=== PATIENT | female | born 1985 | race African-American/Black ===

== ENCOUNTER 2017-06-24 00:20 | Emergency (ER) | payer MEDICAID ==
[~2017-06-24] VITALS: Ht 154.9 cm; Wt 76.0 kg
[2017-06-24 00:56] LABS: CLARITY URINE CLEAR (CLEAR); COLOR URINE YELLOW (YELLOW); KETONES URINE 3+ (NEGATIVE); LEUKOCYTE ESTERASE URINE NEGATIVE (NEGATIVE); NITRITE URINE NEGATIVE (NEGATIVE); OCCULT BLOOD URINE NEGATIVE (NEGATIVE); PROTEIN URINE NEGATIVE (NEGATIVE); SPECIFIC GRAVITY URINE 1.009 (1.005-1.030); UROBILINOGEN URINE 0.2 E.U./dL (0.2-1.0)
[2017-06-24] MEDS ORDERED: SODIUM CHLORIDE 0.9% 1,000 ML IV ONE (06:50)
[2017-06-24] MEDS ORDERED: ONDANSETRON HCL 4MG/2ML VIAL IV ONE (07:00)
[2017-06-24 07:35] LABS: BASOPHILS % 0.4 % (0.0-2.0); CHLORIDE 105 mEq/L (98-107); EOSINOPHILS % 0.6 % (0.0-5.0); HEMATOCRIT. 36.2 % (36.0-48.0); LYMPHOCYTES % 15.5 % (20.0-50.0); MEAN CORPUSCULAR HEMOGLOBIN 28.4 pg (28.0-32.0); MEAN CORPUSCULAR VOLUME 85.9 fL (81.0-99.0); MEAN PLATELET VOLUME 7.8 fl (7.4-10.4); MONOCYTES % 6.3 % (2.0-8.0); NEUTROPHILS % 77.2 % (40.0-76.0); PLATELET 232 x1000/uL (130-400); RED BLOOD CELL COUNT 4.22 mill/uL (4.2-5.4); RED CELL DISTRIBUTION WIDTH 13.4 % (11.6-14.6)
[2017-06-24 07:58] LABS: B-HCG QUANTITATIVE 46693 mIU/mL (<3)
[2017-06-24 10:13] VITALS: BP 104/63
== END 2017-06-24 11:24 | disposition home or self-care (01) ==
LOC: ER 02:43
DX: R10.2 Pelvic and perineal pain (principal); Z32.01 Encounter for pregnancy test, result positive; F12.10 Cannabis abuse, uncomplicated
CPT/HCPCS: 36415; 76705; 76801; 76817; 80053; 81003; 83690; 84702; 85025; 86850; 86900; 86901; 96361; 96374; 99285; J2405; J7030; Z7610

== ENCOUNTER 2017-08-06 14:16 | Emergency (ER) | payer MEDICAID ==
[~2017-08-06] VITALS: Ht 154.9 cm; Wt 73.0 kg
[2017-08-06] MEDS ORDERED: PYRIDOXINE HCL 50MG TABLET PO ONE (16:45)
[2017-08-06 16:48] LABS: BASOPHILS % 0.4 % (0.0-2.0); EOSINOPHILS % 0.9 % (0.0-5.0); HEMATOCRIT. 34.7 % (36.0-48.0); HEMOGLOBIN. 11.5 g/dL (12.0-16.0); LYMPHOCYTES % 15.4 % (20.0-50.0); MEAN CORPUSCULAR HEMOGLOBIN 28.6 pg (28.0-32.0); MEAN CORPUSCULAR VOLUME 86.4 fL (81.0-99.0); MEAN PLATELET VOLUME 7.7 fl (7.4-10.4); MONOCYTES % 4.9 % (2.0-8.0); NEUTROPHILS % 78.4 % (40.0-76.0); PLATELET 212 x1000/uL (130-400); RED BLOOD CELL COUNT 4.02 mill/uL (4.2-5.4); RED CELL DISTRIBUTION WIDTH 13.1 % (11.6-14.6)
[2017-08-06 16:56] LABS: CHLORIDE 106 mEq/L (98-107)
[2017-08-06 17:21] LABS: B-HCG QUANTITATIVE 45522 mIU/mL (<3)
[2017-08-06 19:02] LABS: CLARITY URINE CLEAR (CLEAR); COLOR URINE YELLOW (YELLOW); KETONES URINE 2+ (NEGATIVE); LEUKOCYTE ESTERASE URINE NEGATIVE (NEGATIVE); NITRITE URINE NEGATIVE (NEGATIVE); OCCULT BLOOD URINE NEGATIVE (NEGATIVE); PH URINE 6.5 (4.5-8.0); PROTEIN URINE NEGATIVE (NEGATIVE); SPECIFIC GRAVITY URINE 1.024 (1.005-1.030)
[2017-08-06 20:40] VITALS: BP 109/77
== END 2017-08-06 21:01 | disposition home or self-care (01) ==
LOC: ER 14:16
DX: O26.891 Other specified pregnancy related conditions, first trimester (principal); R10.2 Pelvic and perineal pain; F12.10 Cannabis abuse, uncomplicated; Z3A.12 12 weeks gestation of pregnancy
CPT/HCPCS: 36415; 76801; 80053; 81003; 81025; 84702; 85025; 86850; 86900; 86901; 99285; Z7610

== ENCOUNTER 2021-08-04 00:27 | Emergency (ER) | payer MEDICAID, MEDICARE ==
[~2021-08-04] VITALS: Ht 157.5 cm; Wt 82.3 kg
[~2021-08-04 00:27] MED LIST: FERR236T3 MT; PREN1TAB78 MT
[2021-08-04] MEDS ORDERED: HYDROCODONE/ACETAMINOPHEN 5/325MG TABLET PO STA (03:52)
[2021-08-04 05:18] LABS: HEMATOCRIT 35.4 % (36.0-48.0); HEMOGLOBIN 11.5 g/dL (12.0-16.0); MEAN CORPUSCULAR HEMOGLOBIN 28.3 pg (28.0-32.0); MEAN CORPUSCULAR VOLUME 86.9 fL (81.0-99.0); PLATELET 197 x1000/uL (130-400); RED BLOOD CELL COUNT 4.07 mill/uL (4.2-5.4); RED CELL DISTRIBUTION WIDTH 13.3 % (11.6-14.6)
[2021-08-04 05:40] LABS: CHLORIDE 110 mEq/L (98-107)
[2021-08-04] MEDS ORDERED: TOPUD PO (07:07)
[2021-08-04 07:48] VITALS: BP 122/74
== END 2021-08-04 07:48 | disposition home or self-care (01) ==
LOC: ER 00:27
DX: S20.112A Abrasion of breast, left breast, initial encounter (principal); S30.1XXA Contusion of abdominal wall, initial encounter; F12.10 Cannabis abuse, uncomplicated; Z98.890 Other specified postprocedural states; V43.62XA Car passenger injured in collision with other type car in traffic accident, initial encounter; Y93.89 Activity, other specified; Y92.488 Other paved roadways as the place of occurrence of the external cause
CPT/HCPCS: 36415; 71045; 71260; 73110; 74177; 80053; 81025; 85027; 99285

== ENCOUNTER 2022-01-18 18:37 | Emergency (ER) | payer MEDICAID, MEDICARE ==
[~2022-01-18] VITALS: Ht 157.5 cm; Wt 88.0 kg
[~2022-01-18 18:37] MED LIST changes: +TOPUD PO
[2022-01-19 00:25] LABS: BASOPHILS % 0.3 % (0.0-2.0); EOSINOPHILS % 1.6 % (0.0-5.0); HEMATOCRIT. 37.7 % (36.0-48.0); HEMOGLOBIN. 12.3 g/dL (12.0-16.0); LYMPHOCYTES % 28.5 % (20.0-50.0); MEAN CORPUSCULAR HEMOGLOBIN 28.2 pg (28.0-32.0); MEAN CORPUSCULAR VOLUME 86.6 fL (81.0-99.0); MONOCYTES % 10.1 % (2.0-8.0); NEUTROPHILS % 59.5 % (40.0-76.0); PLATELET 232 x1000/uL (130-400); RED BLOOD CELL COUNT 4.35 mill/uL (4.2-5.4); RED CELL DISTRIBUTION WIDTH 13.4 % (11.6-14.6)
[2022-01-19 00:35] LABS: CHLORIDE 108 mEq/L (98-107)
[2022-01-19 00:47] LABS: B-HCG QUANTITATIVE < 1 mIU/mL (<3)
[2022-01-19 04:06] LABS: CLARITY URINE CLEAR (CLEAR); COLOR URINE DARK YELLOW (YELLOW); KETONES URINE TRACE (NEGATIVE); LEUKOCYTE ESTERASE URINE NEGATIVE (NEGATIVE); NITRITE URINE NEGATIVE (NEGATIVE); OCCULT BLOOD URINE NEGATIVE (NEGATIVE); PH URINE 5.5 (4.5-8.0); PROTEIN URINE TRACE (NEGATIVE); SPECIFIC GRAVITY URINE 1.036 (1.005-1.030)
[2022-01-19] MEDS ORDERED: ACET-2708 PO ×3 (04:28→05:28)
[2022-01-19 05:28] VITALS: BP 118/77
== END 2022-01-19 05:31 | disposition home or self-care (01) ==
LOC: ER 18:51
DX: R10.2 Pelvic and perineal pain (principal); N83.201 Unspecified ovarian cyst, right side; F12.10 Cannabis abuse, uncomplicated
CPT/HCPCS: 36415; 76830; 76856; 80053; 81003; 81025; 84702; 85025; 86850; 86900; 99284

== ENCOUNTER 2022-08-30 16:29 | Emergency (ER) | payer MEDICAID ==
[~2022-08-30] VITALS: Ht 157.5 cm; Wt 72.0 kg
[~2022-08-30 16:29] MED LIST changes: +ACET-2708 PO
[2022-08-30 16:42] VITALS: BP 120/71; RESP 20; TEMP 97.9; O2SAT 99
[2022-08-30 16:43] VITALS: PULSE 92
[2022-08-30] MEDS ORDERED: AMOX1TAB16 MT (20:52)
[2022-08-30] MEDS ORDERED: OXYM30SP26 BOTHNSTRLS (20:52)
== END 2022-08-30 22:16 | disposition home or self-care (01) ==
LOC: ER 16:29
DX: S02.85XA Fracture of orbit, unspecified, initial encounter for closed fracture (principal); F12.10 Cannabis abuse, uncomplicated; M25.532 Pain in left wrist; X58.XXXA Exposure to other specified factors, initial encounter; Y93.89 Activity, other specified; Y92.89 Other specified places as the place of occurrence of the external cause; Y99.8 Other external cause status
CPT/HCPCS: 29125; 70486; 76512; 99284

== ENCOUNTER 2024-04-19 19:23 | Emergency (ER) | payer MEDICAID ==
[~2024-04-19] VITALS: Ht 157.5 cm; Wt 84.0 kg
[~2024-04-19 19:23] MED LIST changes: +AMOX1TAB16 MT; +OXYM30SP26 BOTHNSTRLS
[2024-04-19 19:37] VITALS: O2SAT 100
[2024-04-19 19:39] VITALS: BP 109/66; PULSE 83; RESP 16; TEMP 36.7; O2SAT 100
[2024-04-19 20:25] LABS: BASOPHILS % 0.3 % (0.0-2.0); EOSINOPHILS % 2.1 % (0.0-5.0); HEMATOCRIT. 36.5 % (36.0-48.0); HEMOGLOBIN. 12.2 g/dL (12.0-16.0); LYMPHOCYTES % 16.1 % (20.0-50.0); MEAN CORPUSCULAR HEMOGLOBIN 28.1 pg (28.0-32.0); MEAN CORPUSCULAR HGB CONC 33.4 g/dL (31.0-37.0); MEAN CORPUSCULAR VOLUME 84.3 fL (81.0-99.0); MEAN PLATELET VOLUME 7.2 fl (7.4-10.4); MONOCYTES % 5.4 % (2.0-8.0); NEUTROPHILS % 76.1 % (40.0-76.0); PLATELET 262 x1000/uL (130-400); RED BLOOD CELL COUNT 4.33 mill/uL (4.2-5.4); RED CELL DISTRIBUTION WIDTH 13.7 % (11.6-14.6); WHITE BLOOD COUNT 12.4 x1000/uL (4.5-11.0)
[2024-04-19 20:31] LABS: CHLORIDE 104 mEq/L (98-107); POTASSIUM 3.6 mEq/L (3.5-5.1); SODIUM 140 mEq/L (136-145)
[2024-04-19 20:32] LABS: CALCIUM 9.7 mg/dL (8.7-10.4); CARBON DIOXIDE 26 mEq/L (21-32)
[2024-04-19 20:37] LABS: CREATININE 0.7 mg/dL (0.6-1.0); GLUCOSE 89 mg/dL (70-105); UREA NITROGEN BLOOD 6 mg/dL (9-23)
[2024-04-19 21:52] LABS: ALANINE AMINOTRANSFERASE 16 IU/L (10-49); ALBUMIN 4.2 g/dL (3.2-4.8); ASPARTATE AMINOTRANSFERASE 16 IU/L (<34); BILIRUBIN TOTAL 0.4 mg/dL (0.1-1.0); PROTEIN TOTAL 7.5 g/dL (6.0-8.3)
[2024-04-19 22:04] LABS: B-HCG QUANTITATIVE 144345 mIU/mL (<3); BILIRUBIN DIRECT < 0.1 mg/dL (<=3.0)
[2024-04-20] MEDS: ACETAMINOPHEN 500MG TABLET PO ONE (00:06)
[2024-04-20] MEDS: ACETAMINOPHEN 500MG TABLET PO NR (00:14)
[2024-04-20] MEDS: METOCLOPRAMIDE HCL 5MG TABLET PO ONE (00:14)
[2024-04-20] MEDS ORDERED: TOPUD MT (00:31)
== END 2024-04-20 01:36 | disposition home or self-care (01) ==
LOC: ER 19:23
DX: O26.891 Other specified pregnancy related conditions, first trimester (principal); O21.9 Vomiting of pregnancy, unspecified; R10.11 Right upper quadrant pain; R10.2 Pelvic and perineal pain; Z79.2 Long term (current) use of antibiotics; Z87.440 Personal history of urinary (tract) infections; Z3A.10 10 weeks gestation of pregnancy
CPT/HCPCS: 99284; 76705; 76801; 80076; 80048; 84702; 83690; 85025; 36415; 76817; J8597

== ENCOUNTER 2024-06-14 11:08 | Emergency (ER) | payer MEDICAID ==
[~2024-06-14] VITALS: Ht 157.5 cm; Wt 87.0 kg
[~2024-06-14 11:08] MED LIST changes: +TOPUD MT
[2024-06-14 11:39] VITALS: O2SAT 100
[2024-06-14 11:57] LABS: BASOPHILS % 0.3 % (0.0-2.0); EOSINOPHILS % 2.9 % (0.0-5.0); HEMATOCRIT. 34.2 % (36.0-48.0); HEMOGLOBIN. 11.5 g/dL (12.0-16.0); LYMPHOCYTES % 15.4 % (20.0-50.0); MEAN CORPUSCULAR HEMOGLOBIN 29.1 pg (28.0-32.0); MEAN CORPUSCULAR HGB CONC 33.6 g/dL (31.0-37.0); MEAN CORPUSCULAR VOLUME 86.6 fL (81.0-99.0); MEAN PLATELET VOLUME 7.7 fl (7.4-10.4); MONOCYTES % 8.3 % (2.0-8.0); NEUTROPHILS % 73.1 % (40.0-76.0); PLATELET 242 x1000/uL (130-400); RED BLOOD CELL COUNT 3.95 mill/uL (4.2-5.4); WHITE BLOOD COUNT 10.2 x1000/uL (4.5-11.0)
[2024-06-14 12:08] LABS: CHLORIDE 109 mEq/L (98-107); POTASSIUM 3.8 mEq/L (3.5-5.1); SODIUM 138 mEq/L (136-145)
[2024-06-14 12:09] LABS: CALCIUM 9.6 mg/dL (8.7-10.4); CARBON DIOXIDE 25 mEq/L (21-32)
[2024-06-14 12:14] LABS: CREATININE 0.5 mg/dL (0.6-1.0); GLUCOSE 99 mg/dL (70-105); UREA NITROGEN BLOOD 5 mg/dL (9-23)
[2024-06-14 12:16] LABS: ALANINE AMINOTRANSFERASE 37 IU/L (10-49); ALBUMIN 3.8 g/dL (3.2-4.8); ASPARTATE AMINOTRANSFERASE 22 IU/L (<34); BILIRUBIN DIRECT < 0.1 mg/dL (<=3.0); BILIRUBIN TOTAL 0.3 mg/dL (0.1-1.0); PROTEIN TOTAL 6.7 g/dL (6.0-8.3)
[2024-06-14 12:54] LABS: CLARITY URINE CLOUDY (CLEAR); COLOR URINE YELLOW (YELLOW); GLUCOSE URINE NEGATIVE (NEGATIVE); KETONES URINE NEGATIVE (NEGATIVE); LEUKOCYTE ESTERASE URINE 1+ (NEGATIVE); NITRITE URINE NEGATIVE (NEGATIVE); OCCULT BLOOD URINE NEGATIVE (NEGATIVE); PH URINE 6.5 (4.5-8.0); PROTEIN URINE NEGATIVE (NEGATIVE); SPECIFIC GRAVITY URINE 1.012 (1.005-1.030); UROBILINOGEN URINE 0.2 E.U./dL (0.2-1.0)
[2024-06-14 13:20] LABS: SQUAMOUS EPITHELIAL CELL URINE 2+ /lpf (RARE/1+)
[2024-06-14 13:23] LABS: BACTERIA URINE 2+; RBC URINE NONE SEEN /hpf (0-2)
[2024-06-14 14:31] LABS: HCG SCREEN POSITIVE
[2024-06-14] MEDS ORDERED: CEPH500C2 MT (16:17)
[2024-06-14 17:00] VITALS: BP 112/72; PULSE 88; RESP 18; TEMP 36.7; O2SAT 98
== END 2024-06-14 17:28 | disposition home or self-care (01) ==
LOC: ER 11:08
DX: O23.42 Unspecified infection of urinary tract in pregnancy, second trimester (principal); N39.0 Urinary tract infection, site not specified; Z3A.18 18 weeks gestation of pregnancy; O26.892 Other specified pregnancy related conditions, second trimester; F12.10 Cannabis abuse, uncomplicated; Z79.899 Other long term (current) drug therapy
CPT/HCPCS: 36415; 76805; 80048; 80076; 81003; 81025; 84702; 84703; 85025; 86850; 86900; 99284

== ENCOUNTER 2024-08-04 23:51 | Emergency (ER) | payer MEDICAID ==
[~2024-08-04] VITALS: Ht 157.5 cm; Wt 95.2 kg
[~2024-08-04 23:51] MED LIST changes: +CEPH500C2 MT
[2024-08-05 00:17] VITALS: TEMP 36.8; O2SAT 100
[2024-08-05] MEDS: ONDANSETRON HCL 4MG/2ML INJ IV ONE (00:40)
[2024-08-05] MEDS: SODIUM CHLORIDE 0.9% 1,000 ML IV ONE (00:40)
[2024-08-05 00:43] LABS: BASOPHILS % 0.6 % (0.0-2.0); EOSINOPHILS % 2.6 % (0.0-5.0); HEMATOCRIT. 33.5 % (36.0-48.0); HEMOGLOBIN. 11.2 g/dL (12.0-16.0); LYMPHOCYTES % 16.6 % (20.0-50.0); MEAN CORPUSCULAR HEMOGLOBIN 28.9 pg (28.0-32.0); MEAN CORPUSCULAR HGB CONC 33.6 g/dL (31.0-37.0); MONOCYTES % 6.7 % (2.0-8.0); NEUTROPHILS % 73.5 % (40.0-76.0); PLATELET 228 x1000/uL (130-400); RED CELL DISTRIBUTION WIDTH 13.4 % (11.6-14.6); WHITE BLOOD COUNT 12.8 x1000/uL (4.5-11.0)
[2024-08-05 00:48] LABS: CHLORIDE 105 mEq/L (98-107); POTASSIUM 3.7 mEq/L (3.5-5.1); SODIUM 137 mEq/L (136-145)
[2024-08-05 00:49] LABS: CARBON DIOXIDE 23 mEq/L (21-32)
[2024-08-05 00:50] LABS: CALCIUM 9.2 mg/dL (8.7-10.4)
[2024-08-05 00:54] LABS: CREATININE 0.5 mg/dL (0.6-1.0)
[2024-08-05 00:55] LABS: GLUCOSE 102 mg/dL (70-105); UREA NITROGEN BLOOD 6 mg/dL (9-23)
[2024-08-05 00:56] LABS: ALANINE AMINOTRANSFERASE 19 IU/L (10-49); ALBUMIN 3.8 g/dL (3.2-4.8); ASPARTATE AMINOTRANSFERASE 20 IU/L (<34)
[2024-08-05 00:57] LABS: BILIRUBIN DIRECT < 0.1 mg/dL (<=3.0); BILIRUBIN TOTAL 0.3 mg/dL (0.1-1.0); PROTEIN TOTAL 6.4 g/dL (6.0-8.3)
[2024-08-05 01:21] LABS: CLARITY URINE CLEAR (CLEAR); COLOR URINE YELLOW (YELLOW); GLUCOSE URINE NEGATIVE (NEGATIVE); KETONES URINE NEGATIVE (NEGATIVE); LEUKOCYTE ESTERASE URINE TRACE (NEGATIVE); NITRITE URINE NEGATIVE (NEGATIVE); OCCULT BLOOD URINE NEGATIVE (NEGATIVE); PH URINE 6.5 (4.5-8.0); PROTEIN URINE NEGATIVE (NEGATIVE); SPECIFIC GRAVITY URINE 1.015 (1.005-1.030)
[2024-08-05 01:30] LABS: B-HCG QUANTITATIVE 25594 mIU/mL (<6)
[2024-08-05] MEDS ORDERED: CEPH250C2 MT (03:33)
[2024-08-05 03:34] VITALS: BP 95/59; PULSE 93; RESP 16; O2SAT 98
[2024-08-05 04:33] LABS: SQUAMOUS EPITHELIAL CELL URINE 1+ /lpf (RARE/1+)
[2024-08-05 04:35] LABS: RBC URINE 0-2 /hpf (0-2); WBC URINE 0-2 /hpf (0-2)
[2024-08-05 04:36] LABS: BACTERIA URINE 1+
== END 2024-08-05 03:46 | disposition home or self-care (01) ==
LOC: ER 23:51
DX: O23.42 Unspecified infection of urinary tract in pregnancy, second trimester (principal); O26.892 Other specified pregnancy related conditions, second trimester; Z3A.26 26 weeks gestation of pregnancy
CPT/HCPCS: 99285; 80076; 80048; 81003; 81025; 84702; 83690; 85025; 86850; 86900; 86901; 36415; 76805; 96361; 96374; J2405; J7030; Z7610